=== PATIENT | male | born 1985 | race Caucasian/White ===

== ENCOUNTER 2024-05-19 15:17 | Emergency (ER) | payer OTHER, SELFPAY ==
[2024-05-19 15:25] VITALS: BP 135/84
[2024-05-19 16:00] LABS: % Basophils 0.3 % (0-2); % Eosinophils 0.9 % (0-6); % Immature Granulocytes 0.1 % (0-0.5); % Lymphocytes 20.1 % (20.5-51.1); % Neutrophils 71.6 % (42.2-75.2); Absolute Eosinophils 0.1 10^3/uL (0-0.7); Absolute Lymphocytes 1.4 10^3/uL (1.2-3.4); Absolute Monocytes 0.5 10^3/uL (0.1-0.6); Absolute Neutrophils 4.9 10^3/uL (1.4-6.5); Hemoglobin 14.3 g/dL (13.0-18.0); Mean Corp Hgb Conc. 33.3 g/dL (33.0-37.0); Mean Corpuscular Hgb 26.6 pg (27.0-31.0); Mean Corpuscular Volume 79.9 fL (80.0-94.0); Mean Platelet Volume 11.3 fL (7.4-10.4); Nucleated Red Blood Cells % 0 % (-); Platelet Count 187 10^3/uL (130-400); Red Blood Cell Count 5.38 10^6/uL (4.70-6.10); Red Cell Dist. Width 12.6 % (11.5-14.5); White Blood Cell Count 6.8 10^3/uL (4.8-10.8)
[2024-05-19 16:20] LABS: Chloride 99 mmol/L (98-107); Potassium 4.2 mmol/L (3.5-5.1); Sodium 137 mmol/L (135-145)
[2024-05-19 16:21] LABS: ALT (SGPT) 24 U/L (0-50); AST (SGOT) 27 U/L (17-59); Albumin 4.7 g/dl (3.5-5.0); Alkaline Phosphatase 73 U/L (38-126); Blood Urea Nitrogen 21 mg/dl (9-20); Calcium 9.9 mg/dl (8.4-10.2); Carbon Dioxide 31 mmol/L (22-30); Glucose 118 mg/dl (70-99); Total Bilirubin 0.9 mg/dl (0.2-1.3); Total Protein 6.9 g/dl (6.3-8.2); eGFR > 60.00
--- NOTE | 2024-05-19 17:41 | ED.GENMED ---
History of Present Illness
General
Chief Complaint: Overdose Unintentional
Source: patient
Exam Limitations: none
Time Seen by Provider: 05/19/24 17:23
Nursing documentation reviewed up to this point in time: agreed with
History of Present Illness
History of Present Illness:
38-year-old male with history of anxiety/depression, substance abuse has been clean for 6 years, is in process of being weaned off Lexapro 20 mg daily, started 10 mg daily 2 weeks ago. He also takes Gabapentin, Ashwanda, Zyrted and Lamictal. He
typically sets his medications in a pill bottle on table by his couch and takes them at night. Two nights ago, he fell asleep early, woke up and took the pill bottle full as usual. He woke in the middle of that night with sweats, palpitations,
confusion, nausea, 'skin crawling,' 'hypersensitivity,' he went to work and didn't feel well due to these symptoms, came home after work last night, went to take his nighttime meds and realized all his P.M. meds were still in the bottle. He then
realized he had a bottle with 7-10 Lexapro 10 mg tabs in it and it was empty. He mistakenly took all of the Lexapro pills.
He states he is feeling much better now but he called his PCP who told him to come in to get EKG.
Now feeling a little nausea but much better, denies CP, palpitations, SOB, abd pain. He states his mental state is also 'much better. '
Past History
Past History
ED Past Medical History: Psychiatric (heroin abuse, clean for 6 years. Anxiety/depression)
ED Past Surgical History: Orthopedic (had recent R arm fx - elbow & wrist - did not need surgery - only had cast)
Social History
Tobacco: Smoker
Alcohol: Occasional
Drug: Former user
Personal: Single
Living: with family
Review of Systems
Review of Systems
Allergies reviewed?: Yes
All Other Systems: ROS reviewed and negative except as documented in HPI and ROS
Constitutional: Denies fever, fatigue or chills
Respiratory: Denies trouble breathing
Cardiac: Denies chest pain or diaphoresis
ABD/GI: Reports nausea (much improved); Denies abdominal pain, vomiting or diarrhea
: Denies dysuria or difficulty voiding
Musculoskeletal: Reports no symptoms
Skin: Reports no symptoms
Neurological: Reports no symptoms
Phy Exam
Physical Exam
Physical Exam:
GENERAL: No acute distress. A&Ox3.
CONSTITUTIONAL: Afebrile.
EYES: clear, conjunctivae normal
ENMT: moist mucus membranes
RESPIRATORY: Regular respirations, nonlabored, lungs clear.
CARDIOVASCULAR: Regular rate and rhythm, no murmurs, no rubs.
GI: Soft, nontender, normal BS
MUSCULOSKELETAL: Moves with ease. Well perfused.
SKIN: Warm, dry, pink
PSYCH: Normal mood and affect. Well kept, interactive and appropriate
NEUROLOGIC: Awake, alert and oriented. No focal neurological deficits
Course
Orders/Labs/Results
Orders:
Orders
05/19/24 15:32
Electrocardiogram (*1) Urgent
Reason for Study: Abdominal Pain
EKG- Treatment ONCE
05/19/24 15:46
Complete Blood Count/With Diff Urgent
Comprehensive Metabolic Panel Urgent
Abnormal Lab Results
05/19/24
15:46
MCV 79.9 L fL
(80.0-94.0)
MCH 26.6 L pg
(27.0-31.0)
MPV 11.3 H fL
(7.4-10.4)
Lymphocytes % 20.1 L %
(20.5-51.1)
Carbon Dioxide 31 H mmol/L
(22-30)
BUN 21 H mg/dl
(9-20)
Glucose 118 H mg/dl
(70-99)
05/19/24 15:46
05/19/24 15:46
Vital Signs
Initial and Last Documented VS:
Initial Vital Signs
Temp Pulse Resp BP Pulse Ox
98.5 F 62 20 135/84 99
05/19/24 15:25 05/19/24 15:25 05/19/24 15:25 05/19/24 15:25 05/19/24 15:25
Last Documented Vital Signs
Temp Pulse Resp BP Pulse Ox
98.5 F 68 18 135/86 100
05/19/24 15:25 05/19/24 17:52 05/19/24 17:52 05/19/24 17:52 05/19/24 17:52
World Language Teacher consulted with Physician
World Language Teacher consulted with physician?: Yes
Name of Physician Consulted: Ajay
MDM/Problems Addressed
Differential Diagnosis Includes:
QT prolongation, GI, Nervous system side effects
MDM/Problems Addressed:
38-year-old male with history of anxiety/depression, substance abuse has been clean for 6 years, is in process of being weaned off Lexapro 20 mg daily, started 10 mg daily 2 weeks ago. He also takes Gabapentin, Ashwanda, Zyrted and Lamictal. He
typically sets his medications in a pill bottle on table by his couch and takes them at night. Two nights ago, he fell asleep early, woke up and took the pill bottle full as usual. He woke in the middle of that night with sweats, palpitations,
confusion, nausea, 'skin crawling,' 'hypersensitivity,' he went to work and didn't feel well due to these symptoms, came home after work last night, went to take his nighttime meds and realized all his P.M. meds were still in the bottle. He then
realized he had a bottle with 7-10 Lexapro 10 mg tabs in it and it was empty. He mistakenly took all of the Lexapro pills.
He states he is feeling much better now but he called his PCP who told him to come in to get EKG.
Now feeling a little nausea but much better, denies CP, palpitations, SOB, abd pain. He states his mental state is also 'much better. '
Pleasant, NAD
EKG: Initially read by this examiner:, normal sinus with borderline first-degree AV block, normal QT interval
CBC, CMP with no clinically significant abnormality sinus rhythm with first-degree AV block
Pt wondering when he can continue his Lexapro 10 mg daily, told he can start it tomorrow
Half life: 27-32 hours. This has passed. 99% should be eliminated within next 5-6 days. To avoid withdrawal, start the 10 mg again tomorrow.
Discussed with Dr. Moss who agrees with plan
*Critical Care Note
Total Time (30-74mins, 75-104mins- exclusive of procedures): Not Applicable
ED Attending Note
-
Portions of this chart may have been created with voice recognition software.� Occasional wrong word or��sound alike� substitutions may have occurred due to the inherent limitations of voice recognition software.
Discharge Plan
Departure
Patient Disposition: Home (Routine Discharge)
Date of Disposition: 05/19/24
Time of Disposition: 17:35
Patient with high blood pressure during this ER visit?: No
Condition: Good
Discharge Problem:
Medication administered in error, Accidental overdose
Instructions: Accidental Overdose (DC)
Prescriptions:
No Action
No Meds [No Current Medications]
0
Referrals:
Your, Psychiatrist at [facility] [Other] - Keep scheduled appt
Activity Restrictions/Additional Instructions:
As we discussed, you may start your Lexapro 10 mg a day tomorrow.
Your workup here today shows nothing worrisome.
Interventions
Interventions:
*Risk Screen - Suicide Last Done: 05/19/24 15:25
*General Assessment Last Done: 05/19/24 15:25
*Neglect/Abuse Screening Last Done: 05/19/24 15:25
*Nursing Disposition Last Done: 05/19/24 17:54
ED- Cardiac Assessment Last Done: 05/19/24 17:52
ED- Neurological Assessment Last Done: 05/19/24 17:52
ED-Psychological Assessment Last Done: 05/19/24 17:52
ED- Pulmonary Assessment Last Done: 05/19/24 17:52
Discharge Date and Time
Discharge Date/Time: 05/19/24 17:54
Print Language: MACEDONIAN
[2024-05-19 17:52] VITALS: BP 135/86
== END 2024-05-19 17:54 | disposition home or self-care (01) ==
LOC: EMR 15:17
PROVIDERS: EMERGENCY PHYSICIAN Emergency Medicine; FAMILY PHYSICIAN Emergency Medicine
DX: T50.901A Poisoning by unspecified drugs, medicaments and biological substances, accidental (unintentional), initial encounter (principal); Y92.9 Unspecified place or not applicable; F41.8 Other specified anxiety disorders; F17.200 Nicotine dependence, unspecified, uncomplicated; Z79.899 Other long term (current) drug therapy
CPT/HCPCS: 99283; 80053; 85025; 93005